=== PATIENT | female | born 1965 | race Caucasian/White ===

== ENCOUNTER 2017-11-07 11:54 | Emergency (ER) | payer BC, MEDICARE ==
[2017-11-07 14:00] VITALS: BP 110/71
--- NOTE | 2017-11-07 14:44 | UC ---
Complaint Female HPI - HPI Summary HPI Summary: 52 yo female with dysuria/urgency and frequency x 5 days no n/v no f/v no back pain LAST PM AND THIS AM SHE TOOK A MARCOBID LEFT OVER FROM A PRIO PRESCRIPTION States AMOX gives her diarrhea...no true allergy - History Of Current Complaint Chief Complaint: UCGU Stated Complaint: UTI Time Seen by Provider: 11/07/17 14:35 Hx Obtained From: Patient Hx Last Menstrual Period: 2013 Onset/Duration: Gradual Onset, Lasting Days - 5 Timing: Intermittent, Lasting Minutes Severity Initially: Moderate Severity Currently: None Pain Intensity: 0 - pain with treminal void and for minutes afterward Pain Scale Used: 0-10 Numeric Character: Burning Aggravating Factor(s): Urination Associated Signs And Symptoms: Positive: Negative Related Hx: Similar Episode/Dx as: - UTI - Allergies/Home Medications Allergies/Adverse Reactions: Allergies Allergy/AdvReac Type Severity Reaction Status Date / Time Codeine AdvReac Severe Abdominal Verified 08/30/17 13:33 Pain Penicillins AdvReac Severe Nausea And Verified 08/30/17 13:33 Vomiting Home Medications: Home Medications Naltrexone TAB* 50 mg 11/07/17 [History] Nitrofurantoin Monohyd Macro [Macrobid] 100 mg PO 11/07/17 [History] PMH/Surg Hx/FS Hx/Imm Hx Previously Healthy: Yes Psychological History: Anxiety, Depression - Surgical History Surgical History: Yes Surgery Procedure, Year, and Place: RIGHT FOOT 1988. TUBAL LIGATION. BILAT SHOULDERS 2010 [facility]. NECK SURGERY, FUSION - Family History Known Family History: Positive: Hypertension, Diabetes Negative: Cardiac Disease Family History: Stroke, Dyslipidemia - Social History Alcohol Use: None Alcohol Amount: 8 YRS SOBER Substance Use Type: None Smoking Status (MU): Former Smoker Have You Smoked in the Last Year: No When Did the Patient Quit Smoking/Using Tobacco: 8 YEARS AGO - Immunization History Most Recent Influenza Vaccination: 07/17 Review of Systems Constitutional: Negative Skin: Negative Eyes: Negative ENT: Negative Respiratory: Negative Cardiovascular: Negative Gastrointestinal: Negative Genitourinary: Dysuria, Frequency, Urgency Motor: Negative Neurovascular: Negative Musculoskeletal: Negative Neurological: Negative Psychological: Negative Is Patient Immunocompromised?: No All Other Systems Reviewed And Are Negative: Yes Physical Exam Triage Information Reviewed: Yes Appearance: Well-Appearing, No Pain Distress, Well-Nourished Vital Signs: Initial Vital Signs Temp 97.8 F 11/07/17 13:44 Pulse 105 11/07/17 13:44 Resp 18 11/07/17 13:44 BP 110/71 11/07/17 13:44 Pulse Ox 97 11/07/17 13:44 Vital Signs Reviewed: Yes Eyes: Positive: Conjunctiva Clear ENT: Positive: Hearing grossly normal. Negative: Nasal congestion, TMs normal, Trismus, Muffled voice, Hoarse voice Neck exam: Normal Neck: Positive: Supple, Nontender Respiratory: Positive: Lungs clear, Normal breath sounds, No respiratory distress, No accessory muscle use Cardiovascular: Positive: RRR, No Murmur Abdomen Description: Positive: Nontender, No Organomegaly, Soft. Negative: CVA Tenderness (R), CVA Tenderness (L) Bowel Sounds: Positive: Present Musculoskeletal: Positive: ROM Intact, No Edema Neurological: Positive: Alert Psychological Exam: Normal Skin Exam: Normal Complaint Female Dx - Differential Dx/Diagnosis Provider Diagnoses: dysuria. suspect partially treated acute cystitis Discharge - Discharge Plan Condition: Stable Disposition: HOME Prescriptions: Cephalexin CAP* [Keflex CAP*] 500 mg PO BID #14 cap Patient Education Materials: Dysuria (ED) Referrals: Chan Hansen MD [Primary Care Provider] - 3 Days (if not better) Additional Instructions: I suspect a UTI
--- NOTE | 2017-11-07 19:48 | UC ---
- Progress Note Progress Note: got scared reading pharmacy lit re keflex request different antibiotic advise that pharmacy lit would scare her for this antibiotic as well bactrim DS x 7 days
== END 2017-11-07 14:47 | disposition home or self-care (01) ==
LOC: UCEAST 11:54
DX: R30.0 Dysuria (principal); Z87.440 Personal history of urinary (tract) infections; F41.9 Anxiety disorder, unspecified; F32.9 Major depressive disorder, single episode, unspecified; Z88.5 Allergy status to narcotic agent; Z88.0 Allergy status to penicillin; Z87.891 Personal history of nicotine dependence
CPT/HCPCS: 81003; 87086; 99212; G0463

== ENCOUNTER 2018-05-14 15:01 | Emergency (ER) | payer BC ==
--- OUTSIDE RECORDS SUMMARY | 2018-05-14 15:06 | XMS REPORT ---
:1965 External Reference #:[id number] Author Organization Hay Klein M.D., [facility] Address [address] [facility] [address] [place] [address] Phone [phone] Care Team Providers Name Role Phone Chan Hansen MD Care Team Information Force Dispatcher Unavailable Chan Hansen MD Primary Care Physician Unavailable Payers Type Date Identification Payment Provider Subscriber Numbers Health Maintenance Effective: Policy Number: [employer] Sumanth Ortiz Organization (O) 10/31/2013 [id number] PayID: [id number] [address] [place] [address] Problems Date Description Provider Status Onset: 01/08/2014 Borderline glaucoma Hay Klein M.D. 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 Active Family History Date Family Member(s) Problem(s) Comments Father Cataract Father Heart Disease Father High BP Mother Cancer Social History Type Date Description Comments ETOH Use Denies alcohol use Smoking Patient is a former smoker Allergies, Adverse Reactions, Alerts Date Description Reaction Status Severity Comments 01/08/2014 Codeine active 01/08/2014 NSAIDs active 01/08/2014 Cillins, Ssri's active 05/08/2018 Restasis active Medications Medication Date Status Form Strength Qnty SIG Indications Ordering Provider Tizanidine Active Unknown 00 Clarinex Active Unknown Nasonex Active Unknown 00 Zomig Active Unknown 00 Zyprexa Active Unknown 00 Provigil Active Unknown 00 Prozac Active Unknown 00 Marinol Active Unknown Topomax Active Unknown 00 Vyvanse Active Capsules Unknown 00 Restasis 02/09/20 Hx Emulsion 0.05% 16.5uni 1 drop Wesley Multidose 18 - ts both Cruz, OD 05/08/20 eyes 18 twice a day Vital Signs Date Vital Result Comment 02/08/2018 Intraocular Pressure Right Eye 19 mmHg Intraocular Pressure Left Eye 19 mmHg 02/07/2017 Intraocular Pressure Right Eye 18 mmHg Intraocular Pressure Left Eye 18 mmHg 10/08/2016 Intraocular Pressure Right Eye 19 mmHg Intraocular Pressure Left Eye 19 mmHg 12/31/2015 Intraocular Pressure Right Eye 17 mmHg Intraocular Pressure Left Eye 17 mmHg 04/03/2015 Intraocular Pressure Right Eye 19 mmHg Intraocular Pressure Left Eye 20 mmHg 10/10/2014 Intraocular Pressure Right Eye 19 mmHg Intraocular Pressure Left Eye 20 mmHg 04/10/2014 Intraocular Pressure Right Eye 16 mmHg Intraocular Pressure Left Eye 16 mmHg 01/08/2014 Intraocular Pressure Right Eye 16 mmHg Intraocular Pressure Left Eye 17 mmHg Results Description No Information Procedures Date CPT Code Description Status 02/08/2018 83663 Fundus Photography W/Interpretation & Report Completed 02/08/2018 72146 Refraction Completed 02/08/2018 84756 Eye Exam Est Comprehensive Completed 08/09/2017 08863 Oct, Optic Nerve Completed 08/09/2017 96736 Visual Field Exam Extended, Unilateral Or Bilateral Completed 08/09/2017 22898 Eye Exam Est Intermediate Completed 02/07/2017 16694 Fundus Photography W/Interpretation & Report Completed 02/07/2017 09580 Ophthalmoscopy Subsequent Completed 02/07/2017 43520 Refraction Completed 02/07/2017 19160 Eye Exam Est Comprehensive Completed 10/08/2016 87269 Eye Exam Est Intermediate Completed 10/08/2016 60855 Visual Field Exam Extended, Unilateral Or Bilateral Completed 08/03/2016 18829 Oct, Optic Nerve Completed 08/03/2016 48810 Oct, Optic Nerve Completed 08/03/2016 12781 Visual Field Exam Extended, Unilateral Or Bilateral Completed 08/03/2016 05796 Visual Field Exam Extended, Unilateral Or Bilateral Completed 12/31/2015 34570 Fundus Photography W/Interpretation & Report Completed 12/31/2015 25098 Eye Exam Est Comprehensive Completed 04/03/2015 67525 Oct, Optic Nerve Completed 04/03/2015 63948 Visual Field Exam Extended, Unilateral Or Bilateral Completed 04/03/2015 64523 Eye Exam Est Intermediate Completed 10/10/2014 55655 Eye Exam Est Comprehensive Completed 10/10/2014 79570 Refraction Completed 10/10/2014 57046 Ophthalmoscopy Subsequent Completed 10/10/2014 62212 Fundus Photography W/Interpretation & Report Completed 04/10/2014 43944 Visual Field Exam Extended, Unilateral Or Bilateral Completed 04/10/2014 17699 Eye Exam Est Intermediate Completed 01/08/2014 94564 Oct, Optic Nerve Completed 01/08/2014 33525 Visual Field Exam Extended, Unilateral Or Bilateral Completed 01/08/2014 99190 Eye Exam Est Intermediate Completed 06/03/2011 52489 Visual Field Exam Extended, Unilateral Or Bilateral Completed 06/03/2011 46852 Eye Exam Est Intermediate Completed 03/17/2011 74296 Corneal Pachymetry, Unilateral/Bilateral Completed 03/17/2011 06888 Eye Exam Est Comprehensive Completed 03/17/2011 18890 Ophthalmoscopy Subsequent Completed 03/17/2011 50611 Fundus Photography W/Interpretation & Report Completed 06/18/2010 40145 Eye Exam Est Intermediate Completed 02/05/2010 75952 Visual Field Exam Extended, Unilateral Or Bilateral Completed 02/05/2010 40989 Eye Exam Est Intermediate Completed 01/06/2010 78884 Ophthalmoscopy Initial Completed 01/06/2010 58011 Refraction Completed 01/06/2010 19667 Eye Exam New Comprehensive Completed Plan of Care 02/08/2018 - Wesley Cruz, [id number] Open angle with borderline findings, low risk, [id number] Endothelial corneal [id number] Age-related nuclear cataract, bilateralFollow up:6 weeks dry eye [id number] Keratoconjunct sicca, not specified as Sjogren's, [id number] Presbyopia
[2018-05-14 15:17] VITALS: BP 118/76
--- NOTE | 2018-05-14 15:18 | UC ---
Complaint Female HPI - HPI Summary HPI Summary: Patient presents with a past medical history of bipolar, anxiety and depression. She presents with one day onset urinary urgency, frequency and dysuria. She also complains of pelvic cramping. She denies fever, chills, flank pain. - History Of Current Complaint Stated Complaint: FREQ URINATING,LOWER ABD PAIN Time Seen by Provider: 05/14/18 15:09 Hx Obtained From: Patient Hx Last Menstrual Period: 2013 Onset/Duration: Gradual Onset, Lasting Days Timing: Intermittent Severity Initially: Mild Severity Currently: Moderate Character: Cramping Aggravating Factor(s): Urination Associated Signs And Symptoms: Positive: Negative Related Hx: Similar Episode/Dx as: - uti - Risk Factors Ectopic Risk Factor: Negative - Allergies/Home Medications Allergies/Adverse Reactions: Allergies Allergy/AdvReac Type Severity Reaction Status Date / Time codeine Allergy Severe Abdominal Verified 05/14/18 15:13 Pain Penicillins Allergy Severe n/v Verified 05/14/18 15:13 Home Medications: Home Medications Memantine TAB* [Namenda TAB*] 1 tab PO DAILY 05/14/18 [History Confirmed ] PMH/Surg Hx/FS Hx/Imm Hx Previously Healthy: Yes Psychological History: Anxiety, Depression, Bipolar Disorder - Surgical History Surgical History: Yes Surgery Procedure, Year, and Place: RIGHT FOOT 1988. TUBAL LIGATION. BILAT SHOULDERS 2010 [facility]. NECK SURGERY, FUSION - Family History Known Family History: Positive: Hypertension, Diabetes, Other - cancer Negative: Cardiac Disease Family History: Stroke, Dyslipidemia - Social History Alcohol Use: None Alcohol Amount: 8 YRS SOBER Substance Use Type: None Smoking Status (MU): Former Smoker Have You Smoked in the Last Year: No When Did the Patient Quit Smoking/Using Tobacco: 8 YEARS AGO - Immunization History Most Recent Influenza Vaccination: 07/17 Review of Systems Constitutional: Negative Skin: Negative Eyes: Negative ENT: Negative Respiratory: Negative Cardiovascular: Negative Gastrointestinal: Negative Genitourinary: Dysuria, Hematuria, Frequency Motor: Negative Neurovascular: Negative Musculoskeletal: Negative Neurological: Negative Psychological: Negative Is Patient Immunocompromised?: No All Other Systems Reviewed And Are Negative: Yes Physical Exam Triage Information Reviewed: Yes Appearance: Well-Appearing Vital Signs Reviewed: Yes Eye Exam: Normal ENT Exam: Normal Neck exam: Normal Neck: Positive: 1 Respiratory Exam: Normal Cardiovascular Exam: Normal Abdominal Exam: Normal Musculoskeletal Exam: Normal Neurological Exam: Normal Psychological Exam: Normal Skin Exam: Normal Complaint Female Dx - Course Course Of Treatment: Patient presents with complaints of one day onset urinary urgency, frequency, and dysuria. VSS and patient is afebrile. Ua positive for leukocytes,and will be treated with Macrobid 100 mg bid x 10 days. I told the patient to follow up with her doctor in three days. - Differential Dx/Diagnosis Differential Diagnosis/HQI/PQRI: Urinary Tract Infection Provider Diagnoses: uti Discharge - Sign-Out/Discharge Documenting (check all that apply): Patient Departure - Discharge Plan Condition: Stable Disposition: HOME Prescriptions: Nitrofurantoin Monohyd/M-Cryst [Macrobid 100 mg Capsule] 100 mg PO BID #20 cap Patient Education Materials: Urinary Tract Infection in Women (DC) Referrals: Chan Hansen MD [Primary Care Provider] - Additional Instructions: You will need to follow up with your doctor in three days. - Billing Disposition and Condition Condition: STABLE Disposition: Home
--- NOTE | 2018-05-16 18:42 | UC ---
- Progress Note Progress Note: urine culture final - no growth no change [id number] 05/16/2018 Discharge - Sign-Out/Discharge Documenting (check all that apply): Post-Discharge Follow Up - Discharge Plan Condition: Stable Disposition: HOME Prescriptions: Nitrofurantoin Monohyd/M-Cryst [Macrobid 100 mg Capsule] 100 mg PO BID #20 cap Patient Education Materials: Urinary Tract Infection in Women (DC) Referrals: Chan Hansen MD [Primary Care Provider] - Additional Instructions: You will need to follow up with your doctor in three days. - Billing Disposition and Condition Condition: STABLE Disposition: Home
== END 2018-05-14 15:36 | disposition home or self-care (01) ==
LOC: UCEAST 15:01
DX: N39.0 Urinary tract infection, site not specified (principal); R31.9 Hematuria, unspecified; F41.9 Anxiety disorder, unspecified; F31.9 Bipolar disorder, unspecified; Z88.5 Allergy status to narcotic agent; Z88.0 Allergy status to penicillin; Z82.49 Family history of ischemic heart disease and other diseases of the circulatory system; Z83.3 Family history of diabetes mellitus; Z82.3 Family history of stroke; Z83.49 Family history of other endocrine, nutritional and metabolic diseases; Z80.9 Family history of malignant neoplasm, unspecified; Z87.891 Personal history of nicotine dependence
CPT/HCPCS: 81003; 87086; 99212; G0463

== ENCOUNTER 2018-12-08 08:29 | Emergency (ER) | payer BC ==
[2018-12-08 08:47] VITALS: BP 111/75
--- NOTE | 2018-12-08 10:00 | UC ---
Complaint Female HPI - HPI Summary HPI Summary: 53 yo female presents with urinary frequency and pressure for the last 2 days. She has had UTIs in the past and this feels the same. She is becoming concerned because over the last 2-3 years she has had a UTI every 6-7 months and is unsure why. She denies fever, chills, abdominal pain, n/v, flank pain. - History Of Current Complaint Chief Complaint: UCGU Stated Complaint: POSS UTI Time Seen by Provider: 12/08/18 09:58 Hx Obtained From: Patient Hx Last Menstrual Period: 2013 Onset/Duration: Sudden Onset Severity Initially: Mild Severity Currently: Mild Pain Intensity: 2 Pain Scale Used: 0-10 Numeric - Allergies/Home Medications Allergies/Adverse Reactions: Allergies Allergy/AdvReac Type Severity Reaction Status Date / Time codeine Allergy Severe Abdominal Verified 12/08/18 08:48 Pain Penicillins Allergy Severe n/v Verified 12/08/18 08:48 PMH/Surg Hx/FS Hx/Imm Hx - Additional Past Medical History Additional PMH: ADHD GI/ History: Gastroesophageal Reflux Neurological History: Dementia Psychological History: Anxiety, Depression - Surgical History Surgical History: Yes Surgery Procedure, Year, and Place: RIGHT FOOT 1988. TUBAL LIGATION. BILAT SHOULDERS 2010 [facility]. NECK SURGERY, FUSION - Family History Known Family History: Positive: Hypertension, Diabetes, Other - cancer Negative: Cardiac Disease Family History: Stroke, Dyslipidemia - Social History Lives: With Family Alcohol Use: None Alcohol Amount: 8 YRS SOBER Substance Use Type: None Smoking Status (MU): Former Smoker Have You Smoked in the Last Year: No When Did the Patient Quit Smoking/Using Tobacco: 8 YEARS AGO - Immunization History Most Recent Influenza Vaccination: 07/17 Review of Systems All Other Systems Reviewed And Are Negative: Yes Constitutional: Positive: Negative Skin: Positive: Negative Cardiovascular: Positive: Negative Gastrointestinal: Positive: Negative Genitourinary: Positive: Frequency, Urgency Neurovascular: Positive: Negative Neurological: Positive: Negative Psychological: Positive: Negative Physical Exam - Summary Physical Exam Summary: GENERAL: NAD. WDWN. No pain distress. SKIN: No rashes, sores, lesions, or open wounds. NECK: Supple. Nontender. No lymphadenopathy. CHEST: CTAB. No r/r/w. No accessory muscle use. Breathing comfortably and in no distress. CV: RRR. Without m/r/g. Pulses intact. Cap refill <2seconds ABDOMEN: Soft. NTTP. No CVA tenderness. Bowel sounds present NEURO: Alert. PSYCH: Age appropriate behavior. Triage Information Reviewed: Yes Vital Signs: Initial Vital Signs Temp 98 F 12/08/18 08:44 Pulse 98 12/08/18 08:44 Resp 17 12/08/18 08:44 BP 111/75 12/08/18 08:44 Pulse Ox 100 12/08/18 08:44 Laboratory Tests 12/08/18 09:49 POC Urine Color Yellow POC Urine Clarity Slightly cloudy POC Urine pH 5.5 POC Ur Specif Lamar >= 1.030 POC Urine Protein 2+ A POC Ur Glucose (UA) Negative POC Urine Ketones Negative POC Urine Blood 2+ A POC Urine Nitrite Negative POC Urine Bilirubin Negative POC Urine Urobilinogen 0.2 POC U Leukocyte Esteras 1+ A Vital Signs Reviewed: Yes Complaint Female Dx - Course Course Of Treatment: UA positive. Will treat for UTI and refer her to urology at her request for further evaluation of her UTIs - Differential Dx/Diagnosis Provider Diagnosis: UTI (urinary tract infection) Discharge - Sign-Out/Discharge Documenting (check all that apply): Patient Departure All imaging exams completed and their final reports reviewed: No Studies - Discharge Plan Condition: Stable Disposition: HOME Prescriptions: Cephalexin CAP* [Keflex CAP*] 500 mg PO BID #10 cap Patient Education Materials: Urinary Tract Infection in Women (ED) Referrals: Chan Hansen MD [Primary Care Provider] - Rl Ríos MD [Medical Doctor] - As Soon As Possible Additional Instructions: If you develop a fever, shortness of breath, chest pain, new or worsening symptoms - please call your PCP or go to the ED. Please call Urology at the number below to schedule a follow up appointment regarding your constant UTIs - Billing Disposition and Condition Condition: STABLE Disposition: Home
--- NOTE | 2018-12-09 16:57 | UC ---
- Progress Note Progress Note: patient called c/o diarrhea all day after starting Keflex similar derik to PCN--- will stop keflex and start MArcbid-plan to follow with urology/pcp Course/Dx - Diagnoses Provider Diagnoses: UTI (urinary tract infection) Discharge - Sign-Out/Discharge Documenting (check all that apply): Post-Discharge Follow Up All imaging exams completed and their final reports reviewed: No Studies - Discharge Plan Condition: Stable Disposition: HOME Prescriptions: Cephalexin CAP* [Keflex CAP*] 500 mg PO BID #10 cap Nitrofurantoin Monohyd/M-Cryst [Macrobid 100 mg Capsule] 100 mg PO BID #14 cap Patient Education Materials: Urinary Tract Infection in Women (ED) Referrals: Chan Hansen MD [Primary Care Provider] - Rl Ríos MD [Medical Doctor] - As Soon As Possible Additional Instructions: If you develop a fever, shortness of breath, chest pain, new or worsening symptoms - please call your PCP or go to the ED. Please call Urology at the number below to schedule a follow up appointment regarding your constant UTIs - Billing Disposition and Condition Condition: STABLE Disposition: Home
--- NOTE | 2018-12-10 15:45 | UC ---
- Progress Note Progress Note: 12/10/2018 Urine culture final report positive for E.Coli Pt was change to Macrobid PO yesterday since Kelfex PO cause diarrhea. Final reports shows sensitivity for Macrobid PO No change Sayda Hare PA-C Course/Dx - Diagnoses Provider Diagnoses: UTI (urinary tract infection) Discharge - Sign-Out/Discharge Documenting (check all that apply): Patient Departure - D/C home All imaging exams completed and their final reports reviewed: No Studies - Discharge Plan Condition: Stable Disposition: HOME Prescriptions: Cephalexin CAP* [Keflex CAP*] 500 mg PO BID #10 cap Nitrofurantoin Monohyd/M-Cryst [Macrobid 100 mg Capsule] 100 mg PO BID #14 cap Patient Education Materials: Urinary Tract Infection in Women (ED) Referrals: Chan Hansen MD [Primary Care Provider] - Rl Ríos MD [Medical Doctor] - As Soon As Possible Additional Instructions: If you develop a fever, shortness of breath, chest pain, new or worsening symptoms - please call your PCP or go to the ED. Please call Urology at the number below to schedule a follow up appointment regarding your constant UTIs - Billing Disposition and Condition Condition: STABLE Disposition: Home
== END 2018-12-08 10:09 | disposition home or self-care (01) ==
LOC: UCEAST 08:29
DX: N39.0 Urinary tract infection, site not specified (principal); Z87.891 Personal history of nicotine dependence; F90.9 Attention-deficit hyperactivity disorder, unspecified type; F03.90 Unspecified dementia, unspecified severity, without behavioral disturbance, psychotic disturbance, mood disturbance, and anxiety; Z88.5 Allergy status to narcotic agent; Z88.1 Allergy status to other antibiotic agents
CPT/HCPCS: 81003; 87077; 87086; 87186; 99212; G0463